=== PATIENT | female | born 1940 | race Two or more races ===

== ENCOUNTER 2019-02-09 12:12 | Emergency (ER) | payer OTHER ==
[~2019-02-09] VITALS: Ht 149.9 cm; Wt 61.2 kg
[2019-02-09] MEDS ORDERED: SYNTHROID75 MCG (12:28)
[2019-02-09] MEDS ORDERED: CITALOPRAM HBR40 MG (12:28)
[2019-02-09] MEDS ORDERED: LIPITOR40 MG (12:28)
== END 2019-02-09 19:27 | disposition home or self-care (01) ==
LOC: ER 12:12
DX: K57.90 Diverticulosis of intestine, part unspecified, without perforation or abscess without bleeding (principal)